=== PATIENT | male | born 1990 | race American Indian/Alaskan Native ===

== ENCOUNTER 2017-10-14 17:32 | Emergency (ER) | payer OTHER ==
[2017-10-14] MEDS ORDERED: MOTRIN PO ONE (23:00)
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
[2017-10-15 01:01] VITALS: BP 141/91
== END 2017-10-15 01:05 | disposition home or self-care (01) ==
LOC: ED 17:32
DX: S39.012A Strain of muscle, fascia and tendon of lower back, initial encounter (principal); I10 Essential (primary) hypertension; F17.200 Nicotine dependence, unspecified, uncomplicated; V49.59XA Passenger injured in collision with other motor vehicles in traffic accident, initial encounter; Y93.89 Activity, other specified; Y92.89 Other specified places as the place of occurrence of the external cause; Y99.8 Other external cause status
CPT/HCPCS: 99282